=== PATIENT | female | born 1980 | race Two or more races ===

== ENCOUNTER 2018-04-27 20:56 | Emergency (ER) | payer MEDICAID ==
[~2018-04-27] VITALS: Ht 165.1 cm; Wt 82.8 kg
[~2018-04-27 20:56] MED LIST: BIOT25008 PO; GLYB2.5T4 PO; INSU100V10 SQ; LANTUS SQ; METF500T PO; OMEG-8 PO
[2018-04-27 20:59] VITALS: BP 171/95
[2018-04-27] MEDS ORDERED: ketorolac trometh inj. 60 MG/2 ML VIAL IM ONE (21:20)
[2018-04-27] MEDS ORDERED: orphenadrine citrate 60mg/2ml inj. IM ONE (21:20)
[2018-04-27] MEDS ORDERED: CYCL-1 PO (21:22)
[2018-04-27] MEDS ORDERED: IBUP-1984 PO (21:22)
== END 2018-04-27 21:37 | disposition home or self-care (01) ==
LOC: ER 20:57
DX: S39.012A Strain of muscle, fascia and tendon of lower back, initial encounter (principal); G89.29 Other chronic pain; E11.9 Type 2 diabetes mellitus without complications; Z79.2 Long term (current) use of antibiotics; Z79.84 Long term (current) use of oral hypoglycemic drugs; Z79.899 Other long term (current) drug therapy; X50.1XXA Overexertion from prolonged static or awkward postures, initial encounter; Y93.89 Activity, other specified; Y92.89 Other specified places as the place of occurrence of the external cause; Y99.8 Other external cause status
CPT/HCPCS: 96372; 99284; J1885; J2360

== ENCOUNTER 2019-09-20 18:37 | Inpatient (IN) | payer MEDICAID, OTHER ==
[~2019-09-20] VITALS: Ht 165.1 cm; Wt 100.0 kg
[~2019-09-20 18:37] MED LIST changes: +CYCL-1 PO
--- NOTE | 2019-09-20 18:57 | NUR ---
On arrival patient requests no repeat EKG to registration which accounts for the delay in EKG time.
[2019-09-20 19:18] LABS: BASOPHILS # (AUTO) 0.1 X10'3 (0-0.2); BASOPHILS % (AUTO) 0.9 % (0-1); EOSINOPHILS # (AUTO) 0.2 X10'3 (0-0.9); EOSINOPHILS % (AUTO) 3.7 % (0-6); HEMATOCRIT 41.6 % (35.0-45.0); HEMOGLOBIN 13.8 g/dl (12.0-16.0); LYMPHOCYTES % (AUTO) 31.6 % (21-51); MEAN CORPUSCULAR HEMOGLOBIN 26.4 PG (27.0-31.0); MEAN CORPUSCULAR HGB CONC 33.3 g/dL (33.0-36.5); MEAN CORPUSCULAR VOLUME 79.3 FL (78-98); MEAN PLATELET VOLUME 9.5 FL (7.4-10.4); MONOCYTES # (AUTO) 0.4 X10'3 (0-0.9); MONOCYTES % (AUTO) 7.1 % (2-12); NEUTROPHILS # (AUTO) 3.5 X10'3 (1.8-7.7); NEUTROPHILS % (AUTO) 56.7 % (42-75); PLATELET COUNT 256 X10'3 (140-440); RED BLOOD COUNT 5.24 X10'6 (4.20-5.60); RED CELL DISTRIBUTION WIDTH 13.6 % (11.5-14.5); WHITE BLOOD COUNT 6.2 X10'3 (4.5-11.0)
[2019-09-20 19:35] LABS: ALANINE AMINOTRANSFERASE 58 U/L (12-78); ALBUMIN 3.7 G/DL (3.4-5.0); ALBUMIN/GLOBULIN RATIO 1.1 (1.1-1.5); ALKALINE PHOSPHATASE 56 IU/L (46-116); ANION GAP 7 (8-16); ASPARTATE AMINO TRANSFERASE 29 U/L (10-37); BILIRUBIN,TOTAL 0.2 MG/DL (0.1-1.0); BLOOD UREA NITROGEN 14 MG/DL (7-18); BUN/CREATININE RATIO 19.2 (6.6-38.0); CHLORIDE 104 MMOL/L (99-107); CREATININE 0.73 MG/DL (0.40-0.90); GLUCOSE 272 MG/DL (70-104); POTASSIUM 4.2 MMOL/L (3.5-5.1); SODIUM 140 MMOL/L (135-145); TOTAL CARBON DIOXIDE 28.6 MMOL/L (24-32); TOTAL PROTEIN 7.1 G/DL (6.4-8.2); eGFR 89 ML/MIN
[2019-09-20] MEDS ORDERED: nitroGLYCERIN 0.4mg/hour patch TD ONE (20:25)
[2019-09-20] MEDS ORDERED: aspirin 81mg tab.chew PO ONE (20:25)
[2019-09-20] MEDS ORDERED: normal saline 1000ml 1,000 ML IV SCH (21:41)
[2019-09-20] MEDS ORDERED: magnesium hydroxide 30ml (MOM) UD suspension PO PRN (21:45)
[2019-09-20] MEDS ORDERED: dextrose ORAL solution 15 GM/59 ML bottle PO PRN ×2 (21:45)
[2019-09-20] MEDS ORDERED: MESSAGE TO PHARMACY PO ONE (21:45)
[2019-09-20] MEDS ORDERED: mag hydrox/Alum hydrox/simeth 30ml oral suspension PO PRN (21:45)
[2019-09-20] MEDS ORDERED: insulin Lispro (HumaLOG) vial - multi-dose SQ SCH (21:45)
[2019-09-20] MEDS ORDERED: glucagon, human recombinant 1mg kit SUBCUT PRN (21:45)
[2019-09-20] MEDS ORDERED: ondansetron/PF 4mg/2ml inj IV PRN (21:45)
[2019-09-20] MEDS ORDERED: dextrose 50%-water 50ml dispensing syringe IV PRN ×2 (21:45)
[2019-09-20] MEDS ORDERED: acetaminophen 325mg tablet PO PRN (21:45)
[2019-09-20] MEDS ORDERED: metoprolol tartrate 1mg/ml inj IV PRN (21:50)
[2019-09-20] MEDS ORDERED: regadenoson 0.4mg/5ml syringe IV ONE (21:50)
[2019-09-20] MEDS ORDERED: nitroGLYCERIN 0.4mg SUBLingual tab SL PRN (21:50)
[2019-09-20] MEDS ORDERED: aminophylline 250mg/10ml inj. IV PRN (21:50)
[2019-09-20] MEDS ORDERED: LANTUS SQ (22:01)
[2019-09-20] MEDS ORDERED: METF500T PO (22:01)
[2019-09-20 22:05] LABS: HEMOGLOBIN A1C 9.9 % (4.5-6.2)
--- NOTE | 2019-09-20 22:19 | NUR ---
Called to give report, no RN available to take report.
--- NOTE | 2019-09-20 22:31 | NUR ---
braulio Bauman RN took report from IRENA Lyons in ER. Patient transferring to PCU.
[2019-09-20 23:00] VITALS: BP 129/76
--- NOTE | 2019-09-20 23:15 | NUR ---
Pt arrived on unit @ approx 2300. [place] able to transfer [place], VS are stable, no distress noted. 2-RN skin assessment, nasal MRSA test, & Dart completed. Belongings are with the pt and family at bedside.
[2019-09-20] MEDS: losartan 50mg tablet PO SCH (23:23)
[2019-09-21] VITALS (15 sets, daily range): BP systolic 95–155; BP diastolic 44–90
--- NOTE | 2019-09-21 05:11 | NUR ---
I agree with all charting completed by IRENA Salas.
--- NOTE | 2019-09-21 06:03 | NUR ---
Pt is stable on shift change. Problems reprioritized. Patient report given, questions answered & plan of care reviewed with Frida.
--- NOTE | 2019-09-21 06:03 | NUR ---
Problems reprioritized. Patient report given, questions answered & plan of care reviewed with IRENA Moreno.
--- NOTE | 2019-09-21 06:30 | NUR ---
Patient in room PCU 3013. I have received report from Paradise OSBORN and had the opportunity to ask questions and assume patient care. Patient asleep in bed and resting comfortably. In no acute distress.
--- NOTE | 2019-09-21 06:34 | NUR ---
Patient in room PCU 3013. I have received report from Paradise OSBORN and Ivon OSBORN and had the opportunity to ask questions and assume patient care.
[2019-09-21 07:34] LABS: BASOPHILS # (AUTO) 0.1 X10'3 (0-0.2); BASOPHILS % (AUTO) 1.1 % (0-1); EOSINOPHILS # (AUTO) 0.2 X10'3 (0-0.9); EOSINOPHILS % (AUTO) 3.7 % (0-6); HEMATOCRIT 38.1 % (35.0-45.0); HEMOGLOBIN 12.7 g/dl (12.0-16.0); LYMPHOCYTES # (AUTO) 2.7 X10'3 (1.1-4.8); LYMPHOCYTES % (AUTO) 44.6 % (21-51); MEAN CORPUSCULAR HEMOGLOBIN 26.4 PG (27.0-31.0); MEAN CORPUSCULAR HGB CONC 33.3 g/dL (33.0-36.5); MEAN CORPUSCULAR VOLUME 79.2 FL (78-98); MEAN PLATELET VOLUME 9.6 FL (7.4-10.4); MONOCYTES # (AUTO) 0.4 X10'3 (0-0.9); MONOCYTES % (AUTO) 7.1 % (2-12); NEUTROPHILS # (AUTO) 2.6 X10'3 (1.8-7.7); NEUTROPHILS % (AUTO) 43.5 % (42-75); PLATELET COUNT 253 X10'3 (140-440); RED BLOOD COUNT 4.81 X10'6 (4.20-5.60); RED CELL DISTRIBUTION WIDTH 13.4 % (11.5-14.5)
[2019-09-21 07:42] LABS: ALANINE AMINOTRANSFERASE 50 U/L (12-78); ALBUMIN 3.2 G/DL (3.4-5.0); ALBUMIN/GLOBULIN RATIO 1.1 (1.1-1.5); ALKALINE PHOSPHATASE 42 IU/L (46-116); ANION GAP 5 (8-16); ASPARTATE AMINO TRANSFERASE 24 U/L (10-37); BILIRUBIN,TOTAL 0.2 MG/DL (0.1-1.0); BLOOD UREA NITROGEN 14 MG/DL (7-18); BUN/CREATININE RATIO 23.7 (6.6-38.0); CALCIUM 8.5 MG/DL (8.5-10.1); CHLORIDE 108 MMOL/L (99-107); CREATININE 0.59 MG/DL (0.40-0.90); GLUCOSE 79 MG/DL (70-104); POTASSIUM 3.9 MMOL/L (3.5-5.1); SODIUM 144 MMOL/L (135-145); TOTAL CARBON DIOXIDE 30.7 MMOL/L (24-32); eGFR > 90 ML/MIN
[2019-09-21 07:47] LABS: CHOL/HDL RATIO 5.6 (0.00-4.99); CHOLESTEROL 192 MG/DL (0-200); HDL CHOLESTEROL 34 MG/DL (35-60); LDL CHOLESTEROL 135 MG/DL (50-100); TRIGLYCERIDES 123 MG/DL (20-135)
[2019-09-21] MEDS ORDERED: aspirin 81mg tablet.DR PO SCH (08:00)
[2019-09-21] MEDS: losartan 50mg tablet PO SCH (08:00)
[2019-09-21] MEDS ORDERED: heparin, porcine 5000 units/ml vial SQ SCH (08:00)
--- NOTE | 2019-09-21 11:51 | NUR ---
Linda Navarro. [id number]. Patient has a headache 02/10. No pain medication available. Please advise? SLICK. Guido OSBORN [id number]
[2019-09-21] MEDS ORDERED: acetaminophen 325mg tablet PO PRN (12:20)
--- NOTE | 2019-09-21 12:20 | NUR ---
Tylenol 650mg Q6H PRN per Dr. Raya
--- NOTE | 2019-09-21 13:19 | NUR ---
Dr. Raya notified Linda Ledbetter. [id number]. FYI patient ALBERTO resulted. Would you like the patient to remain NPO? SLICK. Guido OSBORN [id number]
--- NOTE | 2019-09-21 14:52 | NUR ---
DM Consult: Pt A1C 9.9 admit w/ NSTEMI and hx T2DM. NPO for stress test this AM. Pt seen by RD for written/verbal DM ed w/ RD contact information provided. Pt reports typically eats one small meal a day since works nights; previously had tried keto diet and now simply has one salad and a meat each day. Pt reports unable to control GLU even after cutting out grains and starches from diet. RD educated pt on proper meal frequency, carb variety, importance of protein, and importance of checking GLU regularly. Pt reports only checks GLU once/day, takes metformin and Lantus at home as prescribed, and has no trouble receiving refills. RD encouraged pt to attend CDE course for additional education as well. Addendum: 09/21/19 at [address] Amended: Links added.
[2019-09-21] MEDS ORDERED: ASPI-1071 PO (14:59)
[2019-09-21] MEDS ORDERED: ATOR20TA PO (14:59)
[2019-09-21] MEDS ORDERED: NITR0.4T51 SL (14:59)
[2019-09-21] MEDS ORDERED: LOSA25TA96 PO (15:03)
--- NOTE | 2019-09-21 15:39 | NUR ---
Dr. Raya notified Linda Walker, [id number]. Patient would like to speak to you in person regarding melquiades results and what caused the chest pain. She is concerned due to being so young. TY. Guido OSBORN [id number]
--- NOTE | 2019-09-21 16:51 | NUR ---
Dr. Raya notified Linda prescott. [id number]. Patient is requesting a note to be out of work? I can bring it to you to sign if you would like? Guido OSBORN [id number]
--- NOTE | 2019-09-21 17:39 | NUR ---
Patient is stable for discharge per MD orders, all discharge instructions reviewed with patient and all questions answered, new prescriptions called into pharmacy, PIV and Tele DC, belongings sent with patient, walked to lobby, picked up by .
--- NOTE | 2019-09-21 18:25 | NUR ---
[place] documentation: I have reviewed and agree with all interventions, assessments performed and documented IRENA Lora. [place] Medication Administration: For this medication-pass time frame, all medication were reviewed, dispensed, administered and documented per hospital policy by IRENA Lora.
[2019-09-21] MEDS ORDERED: insulin glargine (Lantus) pen - multi-dose SQ SCH ×2 (21:00)
== END 2019-09-21 17:35 | disposition home or self-care (01) | DRG 282 ==
LOC: ER 18:38 → ED HOLD 21:41 → PCU 3S 23:10
PROVIDERS: ADMIT Internal Medicine; ATTEND Hospitalist
PROC: 4A02XM4 Measurement of Cardiac Total Activity, External Approach (ICD-10-PCS; principal; 2019-09-21)
PROC: 3E033HZ Introduction of Radioactive Substance into Peripheral Vein, Percutaneous Approach (ICD-10-PCS; 2019-09-21)
DX: I21.4 Non-ST elevation (NSTEMI) myocardial infarction (principal); G89.29 Other chronic pain; M54.9 Dorsalgia, unspecified; Z79.899 Other long term (current) drug therapy; Z82.3 Family history of stroke; Z82.49 Family history of ischemic heart disease and other diseases of the circulatory system; Z83.3 Family history of diabetes mellitus; Z87.891 Personal history of nicotine dependence
CPT/HCPCS: 36415; 78452; 80053; 80061; 82948; 83036; 83880; 84484; 85025; 87081; 93005; 93017; 93306; 99291; A9500; G0378; J1644; J1815; J2785; J7030

== ENCOUNTER 2019-10-26 10:57 | Day surgery (SDC) | payer OTHER ==
[2019-10-25 13:29] LABS: BASOPHILS # (AUTO) 0.1 X10'3 (0-0.2); BASOPHILS % (AUTO) 1.1 % (0-1); EOSINOPHILS # (AUTO) 0.1 X10'3 (0-0.9); EOSINOPHILS % (AUTO) 2.6 % (0-6); HEMATOCRIT 38.9 % (35.0-45.0); LYMPHOCYTES # (AUTO) 1.6 X10'3 (1.1-4.8); LYMPHOCYTES % (AUTO) 29.5 % (21-51); MEAN CORPUSCULAR HEMOGLOBIN 26.6 PG (27.0-31.0); MEAN CORPUSCULAR HGB CONC 33.5 g/dL (33.0-36.5); MEAN CORPUSCULAR VOLUME 79.4 FL (78-98); MONOCYTES # (AUTO) 0.4 X10'3 (0-0.9); NEUTROPHILS # (AUTO) 3.2 X10'3 (1.8-7.7); NEUTROPHILS % (AUTO) 58.8 % (42-75); PLATELET COUNT 266 X10'3 (140-440); RED CELL DISTRIBUTION WIDTH 13.6 % (11.5-14.5); WHITE BLOOD COUNT 5.5 X10'3 (4.5-11.0)
[2019-10-25 13:39] LABS: ALBUMIN 3.6 G/DL (3.4-5.0); ANION GAP 7 (8-16); BLOOD UREA NITROGEN 13 MG/DL (7-18); BUN/CREATININE RATIO 21.7 (6.6-38.0); CALCIUM 8.7 MG/DL (8.5-10.1); CHLORIDE 106 MMOL/L (99-107); GLUCOSE 141 MG/DL (70-104); POTASSIUM 4.3 MMOL/L (3.5-5.1); SODIUM 141 MMOL/L (135-145); TOTAL CARBON DIOXIDE 27.6 MMOL/L (24-32); eGFR > 90 ML/MIN
[2019-10-25 13:41] LABS: PARTIAL THROMBOPLASTIN TIME 28 SECONDS (22-32)
[2019-10-26] VITALS (10 sets, daily range): BP systolic 120–175; BP diastolic 67–93
[~2019-10-26] VITALS: Ht 165.1 cm; Wt 96.4 kg
[~2019-10-26 10:57] MED LIST changes: +ASPI-1071 PO; +ATOR20TA PO; -BIOT25008 PO; -CYCL-1 PO; -GLYB2.5T4 PO; -INSU100V10 SQ; -OMEG-8 PO
[2019-10-26] MEDS ORDERED: LORazepam 0.5 MG tablet PO PRN (11:25)
[2019-10-26] MEDS ORDERED: normal saline 1,000 ML IV SCH (11:25)
[2019-10-26] MEDS ORDERED: diphenhydrAMINE 25mg capsule PO PRN (11:25)
[2019-10-26] MEDS ORDERED: ASPI-611 PO (11:44)
[2019-10-26] MEDS ORDERED: METF-795 PO (11:44)
[2019-10-26] MEDS ORDERED: LOSA50TA64 PO (11:44)
[2019-10-26] MEDS ORDERED: ISOS30TA6 PO (11:44)
[2019-10-26] MEDS ORDERED: METO25TA6 PO (11:44)
[2019-10-26] MEDS ORDERED: ATOR20TA PO (11:44)
[2019-10-26] MEDS ORDERED: INSU100I31 SQ (11:44)
[2019-10-26] MEDS ORDERED: fentaNYL/PF 50MCG/1 ML 2ML syringe ONE (14:51)
[2019-10-26] MEDS ORDERED: LIDOcaine 1% (10mg/ml)w/preservative injection 20ml MDV ONE (14:52)
[2019-10-26] MEDS ORDERED: midazolam 2 mg/2 ml injection ONE (14:52)
[2019-10-26] MEDS ORDERED: iohexol 350MG/ML 100ml bottle IV ONE ×2 (14:52→16:33)
[2019-10-26] MEDS ORDERED: heparin 1,000unit/ml 10ml vial 10 ML ONE (15:58)
[2019-10-26] MEDS ORDERED: nitroGLYCERIN-Tridil 50MG/D5W 250 ML IV ONE (15:59)
[2019-10-26] MEDS ORDERED: verapamil 2.5 mg/ml inj IV ONE (16:10)
[2019-10-26] MEDS ORDERED: ticagrelor 90mg tablet ONE (16:28)
== END 2019-10-26 20:20 | disposition home or self-care (01) ==
LOC: SSTAY O 10:57
PROVIDERS: ATTEND Internal Medicine Interventional Cardiology
DX: R94.30 Abnormal result of cardiovascular function study, unspecified (principal); I25.10 Atherosclerotic heart disease of native coronary artery without angina pectoris; I10 Essential (primary) hypertension; I25.2 Old myocardial infarction; E66.9 Obesity, unspecified; E11.59 Type 2 diabetes mellitus with other circulatory complications; F17.211 Nicotine dependence, cigarettes, in remission; E78.5 Hyperlipidemia, unspecified; Z79.899 Other long term (current) drug therapy; Z98.890 Other specified postprocedural states; Z79.82 Long term (current) use of aspirin
CPT/HCPCS: 36415; 80048; 82948; 85025; 85610; 85730; 93005; 93458; 99152; 99153; C1769; C1874; C1894; C9600; J1644; J2001; J2250; J3010; J7030; Q0163; Q9967; A4620; A5120; A6258; C1751; J3490

== ENCOUNTER 2020-01-20 20:38 | Emergency (ER) | payer OTHER ==
[~2020-01-20] VITALS: Ht 165.1 cm; Wt 90.9 kg
[~2020-01-20 20:38] MED LIST changes: -ASPI-1071 PO; +ASPI-611 PO; +INSU100I31 SQ; +ISOS30TA6 PO; +LOSA50TA64 PO; +METF-795 PO; +METO25TA6 PO
[2020-01-20 20:55] LABS: BASOPHILS # (AUTO) 0.1 X10'3 (0-0.2); EOSINOPHILS # (AUTO) 0.2 X10'3 (0-0.9); EOSINOPHILS % (AUTO) 3.8 % (0-6); HEMATOCRIT 38.3 % (35.0-45.0); HEMOGLOBIN 12.5 g/dl (12.0-16.0); LYMPHOCYTES # (AUTO) 1.9 X10'3 (1.1-4.8); LYMPHOCYTES % (AUTO) 35.8 % (21-51); MEAN CORPUSCULAR HEMOGLOBIN 26.3 PG (27.0-31.0); MEAN CORPUSCULAR HGB CONC 32.6 g/dL (33.0-36.5); MEAN CORPUSCULAR VOLUME 80.8 FL (78-98); MEAN PLATELET VOLUME 9.1 FL (7.4-10.4); MONOCYTES # (AUTO) 0.4 X10'3 (0-0.9); MONOCYTES % (AUTO) 6.8 % (2-12); NEUTROPHILS # (AUTO) 2.8 X10'3 (1.8-7.7); NEUTROPHILS % (AUTO) 52.6 % (42-75); PLATELET COUNT 228 X10'3 (140-440); RED BLOOD COUNT 4.74 X10'6 (4.20-5.60); RED CELL DISTRIBUTION WIDTH 13.2 % (11.5-14.5); WHITE BLOOD COUNT 5.4 X10'3 (4.5-11.0)
[2020-01-20 21:10] LABS: ALANINE AMINOTRANSFERASE 27 U/L (12-78); ALBUMIN 3.3 G/DL (3.4-5.0); ALBUMIN/GLOBULIN RATIO 1.1 (1.1-1.5); ALKALINE PHOSPHATASE 43 IU/L (46-116); ANION GAP 11 (8-16); ASPARTATE AMINO TRANSFERASE 12 U/L (10-37); BILIRUBIN,TOTAL 0.2 MG/DL (0.1-1.0); BLOOD UREA NITROGEN 17 MG/DL (7-18); BUN/CREATININE RATIO 22.4 (6.6-38.0); CALCIUM 8.3 MG/DL (8.5-10.1); CHLORIDE 108 MMOL/L (99-107); CREATININE 0.76 MG/DL (0.40-0.90); GLUCOSE 81 MG/DL (70-104); POTASSIUM 3.5 MMOL/L (3.5-5.1); SODIUM 146 MMOL/L (135-145); TOTAL PROTEIN 6.3 G/DL (6.4-8.2); eGFR 85 ML/MIN
[2020-01-20] MEDS ORDERED: normal saline 1000ML IV soln IVB ONE (21:20)
[2020-01-20] MEDS ORDERED: ondansetron/PF 4mg/2ml inj IV ONE (21:40)
[2020-01-20] MEDS ORDERED: proCHLORperazine 10 MG/2 ml inj IV ONE (21:55)
[2020-01-21 00:50] VITALS: BP 125/47
== END 2020-01-21 00:53 | disposition home or self-care (01) ==
LOC: ER 20:38
DX: I25.10 Atherosclerotic heart disease of native coronary artery without angina pectoris (principal); R06.02 Shortness of breath; R07.9 Chest pain, unspecified; R42 Dizziness and giddiness; R11.0 Nausea; G89.29 Other chronic pain; Z79.82 Long term (current) use of aspirin; Z79.4 Long term (current) use of insulin; Z79.899 Other long term (current) drug therapy
CPT/HCPCS: 36415; 71045; 80053; 84484; 85025; 93005; 96374; 96375; 99285; J0780; J2405; J7030

== ENCOUNTER 2021-09-27 15:01 | Outpatient (CLI) | payer BC ==
[~2021-09-27 15:01] MED LIST changes: -ISOS30TA6 PO; +ISOS30TA84 PO; +LOP25T PO; -METF-795 PO; +METF-880 PO; -METO25TA6 PO
[2021-09-27 15:48] LABS: BASOPHILS % (AUTO) 0.5 % (0-1); EOSINOPHILS # (AUTO) 0.1 X10'3 (0-0.9); EOSINOPHILS % (AUTO) 2.9 % (0-6); HEMATOCRIT 40.2 % (35.0-45.0); HEMOGLOBIN 13.2 g/dl (12.0-16.0); LYMPHOCYTES # (AUTO) 1.5 X10'3 (1.1-4.8); LYMPHOCYTES % (AUTO) 31.7 % (21-51); MEAN CORPUSCULAR HEMOGLOBIN 26.2 PG (27.0-31.0); MEAN CORPUSCULAR HGB CONC 32.8 g/dL (33.0-36.5); MONOCYTES # (AUTO) 0.4 X10'3 (0-0.9); MONOCYTES % (AUTO) 9.2 % (2-12); NEUTROPHILS # (AUTO) 2.6 X10'3 (1.8-7.7); NEUTROPHILS % (AUTO) 55.7 % (42-75); PLATELET COUNT 212 X10'3 (140-440); RED BLOOD COUNT 5.03 X10'6 (4.20-5.60); RED CELL DISTRIBUTION WIDTH 13.5 % (11.5-14.5); WHITE BLOOD COUNT 4.7 X10'3 (4.5-11.0)
[2021-09-27 16:12] LABS: HEMOGLOBIN A1C 9.4 % (4.5-6.2)
[2021-09-27 16:14] LABS: ALANINE AMINOTRANSFERASE 32 U/L (12-78); ALBUMIN 3.9 G/DL (3.4-5.0); ALBUMIN/GLOBULIN RATIO 1.4 (1.1-1.5); ALKALINE PHOSPHATASE 41 IU/L (46-116); ANION GAP 10 (8-16); ASPARTATE AMINO TRANSFERASE 13 U/L (10-37); BILIRUBIN,TOTAL 0.2 MG/DL (0.1-1.0); BLOOD UREA NITROGEN 19 MG/DL (7-18); BUN/CREATININE RATIO 35.8 (6.6-38.0); CALCIUM 8.2 MG/DL (8.5-10.1); CHLORIDE 105 MMOL/L (99-107); CHOLESTEROL 158 MG/DL (0-200); CREATININE 0.53 MG/DL (0.40-0.90); GLUCOSE 150 MG/DL (70-104); HDL CHOLESTEROL 40 MG/DL (35-60); LDL CHOLESTEROL 94 MG/DL (50-100); POTASSIUM 4.5 MMOL/L (3.5-5.1); SODIUM 142 MMOL/L (135-145); TOTAL CARBON DIOXIDE 26.9 MMOL/L (24-32); TOTAL PROTEIN 6.7 G/DL (6.4-8.2); TRIGLYCERIDES 95 MG/DL (20-135); eGFR > 90 ML/MIN
[2021-09-29 10:21] LABS: C-PEPTIDE, SERUM 2.5 ng/mL (1.1-4.4)
[2021-09-29 16:57] LABS: MICROALB/CRT, RATIO 43 mg/g creat (0-29)
[2021-10-01 14:26] LABS: GAD-65 AUTOANTIBODY <5.0 U/mL (0.0-5.0)
== END 2021-09-27 23:59 | disposition home or self-care (01) ==
LOC: LAB 15:01
PROVIDERS: ATTEND Nurse Practitioner Occupational Health
DX: E11.9 Type 2 diabetes mellitus without complications (principal); E55.9 Vitamin D deficiency, unspecified; R53.83 Other fatigue; Z00.00 Encounter for general adult medical examination without abnormal findings
CPT/HCPCS: 36415; 80053; 80061; 82043; 82306; 82570; 83036; 84439; 84443; 84681; 85025

== ENCOUNTER 2022-04-08 19:25 | Emergency (ER) | payer BC ==
[~2022-04-08] VITALS: Ht 165.1 cm; Wt 87.8 kg
[2022-04-08 19:29] VITALS: BP 145/88
[2022-04-08] MEDS ORDERED: dexamethasone sod phosphate 10mg/ml inj IM STA (21:00)
[2022-04-08] MEDS ORDERED: albuterol 2.5 MG/3 ML nebule NEB ONE ×2 (21:00→21:40)
== END 2022-04-08 22:27 | disposition home or self-care (01) ==
LOC: ER 19:26
DX: J20.9 Acute bronchitis, unspecified (principal); J45.909 Unspecified asthma, uncomplicated; R05.9 Cough, unspecified; R09.89 Other specified symptoms and signs involving the circulatory and respiratory systems; G89.29 Other chronic pain; Z79.82 Long term (current) use of aspirin; Z79.4 Long term (current) use of insulin; Z79.899 Other long term (current) drug therapy
CPT/HCPCS: 71045; 94640; 96372; 99283; J1100; 94760

== ENCOUNTER 2022-05-03 12:33 | Outpatient (CLI) | payer BC ==
[2022-05-03 13:13] LABS: ALANINE AMINOTRANSFERASE 27 U/L (12-78); ALBUMIN 3.7 G/DL (3.4-5.0); ALBUMIN/GLOBULIN RATIO 1.2 (1.1-1.5); ALKALINE PHOSPHATASE 44 IU/L (46-116); ANION GAP 7 (8-16); ASPARTATE AMINO TRANSFERASE 9 U/L (10-37); BILIRUBIN,TOTAL 0.2 MG/DL (0.1-1.0); BLOOD UREA NITROGEN 15 MG/DL (7-18); BUN/CREATININE RATIO 26.3 (6.6-38.0); CALCIUM 8.8 MG/DL (8.5-10.1); CHLORIDE 103 MMOL/L (99-107); CHOL/HDL RATIO 3.6 (0.00-4.99); CHOLESTEROL 141 MG/DL (0-200); CREATININE 0.57 MG/DL (0.40-0.90); GLUCOSE 205 MG/DL (70-104); HDL CHOLESTEROL 39 MG/DL (35-60); LDL CHOLESTEROL 83 MG/DL (50-100); POTASSIUM 4.1 MMOL/L (3.5-5.1); SODIUM 139 MMOL/L (135-145); TOTAL CARBON DIOXIDE 29.4 MMOL/L (24-32); TOTAL PROTEIN 6.7 G/DL (6.4-8.2); TRIGLYCERIDES 101 MG/DL (20-135); eGFR > 90 ML/MIN
== END 2022-05-03 23:59 | disposition home or self-care (01) ==
LOC: LAB 12:33
PROVIDERS: ATTEND Internal Medicine Interventional Cardiology
DX: E78.5 Hyperlipidemia, unspecified (principal)
CPT/HCPCS: 36415; 80053; 80061

== ENCOUNTER 2022-07-19 08:43 | Outpatient (CLI) | payer BC | END 2022-07-19 23:59 | disposition home or self-care (01) | LOC: RAD 08:43 | PROVIDERS: ATTEND Nurse Practitioner Family | DX: N85.8 Other specified noninflammatory disorders of uterus (principal); N83.292 Other ovarian cyst, left side; N92.6 Irregular menstruation, unspecified | CPT/HCPCS: 76830; 76856; 93976 ==

== ENCOUNTER 2022-07-19 08:54 | Outpatient (CLI) | payer BC ==
[2022-07-19 09:32] LABS: HEMOGLOBIN A1C 9.5 % (4.5-6.2)
[2022-07-19 09:48] LABS: ALANINE AMINOTRANSFERASE 22 U/L (12-78); ALBUMIN 3.9 G/DL (3.4-5.0); ALBUMIN/GLOBULIN RATIO 1.3 (1.1-1.5); ALKALINE PHOSPHATASE 47 IU/L (46-116); ASPARTATE AMINO TRANSFERASE 10 U/L (10-37); BILIRUBIN,TOTAL 0.3 MG/DL (0.1-1.0); BLOOD UREA NITROGEN 17 MG/DL (7-18); BUN/CREATININE RATIO 26.6 (6.6-38.0); CALCIUM 9.2 MG/DL (8.5-10.1); CHOL/HDL RATIO 3.5 (0.00-4.99); CHOLESTEROL 130 MG/DL (0-200); CREATININE 0.64 MG/DL (0.40-0.90); GLUCOSE 289 MG/DL (70-104); HDL CHOLESTEROL 37 MG/DL (35-60); LDL CHOLESTEROL 72 MG/DL (50-100); TOTAL CARBON DIOXIDE 29.1 MMOL/L (24-32); TOTAL PROTEIN 6.8 G/DL (6.4-8.2); TRIGLYCERIDES 140 MG/DL (20-135); eGFR > 90 ML/MIN
[2022-07-19 09:58] LABS: ANION GAP 7 (8-16); CHLORIDE 100 MMOL/L (99-107); POTASSIUM 4.5 MMOL/L (3.5-5.1); SODIUM 136 MMOL/L (135-145)
== END 2022-07-19 23:59 | disposition home or self-care (01) ==
LOC: LAB 08:54
PROVIDERS: ATTEND Nurse Practitioner Family
DX: E11.59 Type 2 diabetes mellitus with other circulatory complications (principal); E78.5 Hyperlipidemia, unspecified; I10 Essential (primary) hypertension
CPT/HCPCS: 36415; 80053; 80061; 83036

== ENCOUNTER 2023-03-26 06:44 | Outpatient (CLI) | payer BC | END 2023-03-26 23:59 | disposition home or self-care (01) | LOC: LAB 06:44 | PROVIDERS: ATTEND Family Medicine | DX: E11.9 Type 2 diabetes mellitus without complications (principal) | CPT/HCPCS: 36415; 83036 ==

== ENCOUNTER → 2023-05-23 | Outpatient (CLI) | payer BC ==
[2023-05-23 15:00] LABS: ALANINE AMINOTRANSFERASE 24 U/L (12-78); ALBUMIN 3.8 G/DL (3.4-5.0); ALBUMIN/GLOBULIN RATIO 1.1 (1.1-1.5); ALKALINE PHOSPHATASE 43 IU/L (46-116); ANION GAP 8 (8-16); ASPARTATE AMINO TRANSFERASE 11 U/L (10-37); BILIRUBIN,TOTAL 0.3 MG/DL (0.1-1.0); BLOOD UREA NITROGEN 18 MG/DL (7-18); BUN/CREATININE RATIO 39.1 (10.0-20.0); CHLORIDE 104 MMOL/L (99-107); CHOL/HDL RATIO 3.7 (0.00-4.99); CHOLESTEROL 129 MG/DL (0-200); CREATININE 0.46 MG/DL (0.40-0.90); GLUCOSE 161 MG/DL (70-104); HDL CHOLESTEROL 35 MG/DL (35-60); LDL CHOLESTEROL 69 MG/DL (50-100); POTASSIUM 4.4 MMOL/L (3.5-5.1); SODIUM 138 MMOL/L (135-145); TOTAL CARBON DIOXIDE 25.9 MMOL/L (24-32); TOTAL PROTEIN 7.2 G/DL (6.4-8.2); TRIGLYCERIDES 161 MG/DL (20-135); eGFR > 90 ML/MIN
== END | disposition home or self-care (01) ==
LOC: LAB 13:56
PROVIDERS: ATTEND Family Medicine
DX: E78.00 Pure hypercholesterolemia, unspecified (principal); E11.9 Type 2 diabetes mellitus without complications; I10 Essential (primary) hypertension
CPT/HCPCS: 36415; 80053; 80061

== ENCOUNTER 2023-08-26 20:05 | Emergency (ER) | payer BC ==
[~2023-08-26] VITALS: Ht 162.6 cm; Wt 85.0 kg
[2023-08-26 20:09] VITALS: BP 136/74; TEMP 97.8
[2023-08-26 21:48] LABS: BASOPHILS # (AUTO) 0.1 X10'3 (0-0.2); BASOPHILS % (AUTO) 0.8 % (0-1); EOSINOPHILS # (AUTO) 0.1 X10'3 (0-0.9); EOSINOPHILS % (AUTO) 1.9 % (0-6); HEMOGLOBIN 13.1 g/dl (12.0-16.0); LYMPHOCYTES # (AUTO) 1.7 X10'3 (1.1-4.8); LYMPHOCYTES % (AUTO) 27.3 % (21-51); MEAN CORPUSCULAR HEMOGLOBIN 25.5 PG (27.0-31.0); MEAN CORPUSCULAR VOLUME 79.6 FL (78-98); MONOCYTES # (AUTO) 0.5 X10'3 (0-0.9); MONOCYTES % (AUTO) 7.7 % (2-12); NEUTROPHILS # (AUTO) 3.9 X10'3 (1.8-7.7); NEUTROPHILS % (AUTO) 62.3 % (42-75); PLATELET COUNT 247 X10'3 (140-440); RED BLOOD COUNT 5.15 X10'6 (4.20-5.60); RED CELL DISTRIBUTION WIDTH 14.5 % (11.5-14.5); WHITE BLOOD COUNT 6.3 X10'3 (4.5-11.0)
[2023-08-26] MEDS ORDERED: ipratropium/albuterol 3ml nebule NEB ONE (21:50)
[2023-08-26 21:52] LABS: ALANINE AMINOTRANSFERASE 31 U/L (12-78); ALBUMIN 3.9 G/DL (3.4-5.0); ALBUMIN/GLOBULIN RATIO 1.1 (1.1-1.5); ALKALINE PHOSPHATASE 40 IU/L (46-116); ANION GAP 10 (8-16); ASPARTATE AMINO TRANSFERASE 15 U/L (10-37); BILIRUBIN,TOTAL 0.5 MG/DL (0.1-1.0); BLOOD UREA NITROGEN 23 MG/DL (7-18); BUN/CREATININE RATIO 40.4 (10.0-20.0); CALCIUM 9.3 MG/DL (8.5-10.1); CHLORIDE 102 MMOL/L (99-107); CREATININE 0.57 MG/DL (0.40-0.90); GLUCOSE 152 MG/DL (70-104); POTASSIUM 4.5 MMOL/L (3.5-5.1); SODIUM 138 MMOL/L (135-145); TOTAL CARBON DIOXIDE 25.9 MMOL/L (24-32); TOTAL PROTEIN 7.4 G/DL (6.4-8.2); eCRCL 110 ML/MIN; eGFR > 90 ML/MIN
[2023-08-26 21:59] LABS: PRO BRAIN NATRIURETIC PEPTIDE 75 PG/ML (0-125)
[2023-08-26 22:03] VITALS: PULSE 86; RESP 16; O2SAT 96
[2023-08-26 22:08] VITALS: PULSE 86; RESP 16; O2SAT 100
[2023-08-26 23:11] LABS: D-DIMER < 0.19 MG/L FEU (0-0.50)
[2023-08-26] MEDS ORDERED: ALBU18HF2 INH (23:33)
[2023-08-26] MEDS ORDERED: PRED20TA PO (23:33)
== END 2023-08-26 23:54 | disposition home or self-care (01) ==
LOC: ER 20:06
DX: J45.901 Unspecified asthma with (acute) exacerbation (principal); J45.909 Unspecified asthma, uncomplicated; Z20.822 Contact with and (suspected) exposure to COVID-19
CPT/HCPCS: 36415; 71045; 80053; 83880; 84484; 85025; 85379; 87502; 87503; 87811; 94640; 94760; 99285

== ENCOUNTER 2023-10-08 08:43 | Outpatient (CLI) | payer BC ==
[~2023-10-08 08:43] MED LIST changes: +ALBU18HF2 INH
== END 2023-10-08 23:59 | disposition home or self-care (01) ==
LOC: VAS 08:43
PROVIDERS: ATTEND Nurse Practitioner Family
DX: I65.23 Occlusion and stenosis of bilateral carotid arteries (principal); I25.10 Atherosclerotic heart disease of native coronary artery without angina pectoris
CPT/HCPCS: 93880

== ENCOUNTER → 2023-10-15 | Outpatient (CLI) | payer BC ==
[2023-10-15 07:17] LABS: ALANINE AMINOTRANSFERASE 24 U/L (12-78); ALBUMIN 3.9 G/DL (3.4-5.0); ALBUMIN/GLOBULIN RATIO 1.3 (1.1-1.5); ALKALINE PHOSPHATASE 41 IU/L (46-116); ANION GAP 9 (8-16); ASPARTATE AMINO TRANSFERASE 15 U/L (10-37); BILIRUBIN,TOTAL 0.3 MG/DL (0.1-1.0); BLOOD UREA NITROGEN 24 MG/DL (7-18); BUN/CREATININE RATIO 35.3 (10.0-20.0); CALCIUM 8.3 MG/DL (8.5-10.1); CHLORIDE 104 MMOL/L (99-107); CHOL/HDL RATIO 3.3 (0.00-4.99); CHOLESTEROL 169 MG/DL (0-200); CREATININE 0.68 MG/DL (0.40-0.90); GLUCOSE 120 MG/DL (70-104); HDL CHOLESTEROL 51 MG/DL (35-60); LDL CHOLESTEROL 91 MG/DL (50-100); POTASSIUM 4.1 MMOL/L (3.5-5.1); SODIUM 138 MMOL/L (135-145); TOTAL CARBON DIOXIDE 24.8 MMOL/L (24-32); TOTAL PROTEIN 6.8 G/DL (6.4-8.2); TRIGLYCERIDES 75 MG/DL (20-135); eGFR > 90 ML/MIN
[2023-10-15 08:22] LABS: HEMOGLOBIN A1C 8.1 % (4.5-6.2)
== END | disposition home or self-care (01) ==
LOC: LAB 06:13
PROVIDERS: ATTEND Nurse Practitioner Family
DX: E11.59 Type 2 diabetes mellitus with other circulatory complications (principal); E78.5 Hyperlipidemia, unspecified
CPT/HCPCS: 36415; 80053; 80061; 83036

== ENCOUNTER 2023-11-02 04:35 | Emergency (ER) | payer BC ==
[~2023-11-02] VITALS: Ht 162.6 cm; Wt 86.4 kg
[2023-11-02 04:43] VITALS: BP 123/68; PULSE 86; RESP 16; TEMP 97.8; O2SAT 99
== END 2023-11-02 08:53 | disposition home or self-care (01) ==
LOC: ER 04:36
DX: R51.9 Headache, unspecified (principal); J02.9 Acute pharyngitis, unspecified; J45.909 Unspecified asthma, uncomplicated; G89.29 Other chronic pain; M54.9 Dorsalgia, unspecified; Z79.82 Long term (current) use of aspirin; Z79.84 Long term (current) use of oral hypoglycemic drugs; Z79.899 Other long term (current) drug therapy; Z79.4 Long term (current) use of insulin
CPT/HCPCS: 87502; 87503; 99283

== ENCOUNTER 2024-04-02 18:15 | Emergency (ER) | payer BC ==
[~2024-04-02] VITALS: Ht 162.6 cm; Wt 86.4 kg
--- NOTE | 2024-04-02 18:46 | NUR ---
PT REPORTS 6/10 PAIN BUT DOES NOT WANT TO TAKE PAIN MEDICATION AT THIS TIME.
[2024-04-02 20:01] VITALS: BP 151/94; PULSE 81; RESP 15; TEMP 97.2; O2SAT 98
== END 2024-04-02 20:03 | disposition home or self-care (01) ==
LOC: ER 18:16
DX: S53.402A Unspecified sprain of left elbow, initial encounter (principal); J45.909 Unspecified asthma, uncomplicated; G89.29 Other chronic pain; Z79.02 Long term (current) use of antithrombotics/antiplatelets; Z79.4 Long term (current) use of insulin; Z79.899 Other long term (current) drug therapy; Z87.891 Personal history of nicotine dependence; X50.0XXA Overexertion from strenuous movement or load, initial encounter; Y93.89 Activity, other specified; Y92.89 Other specified places as the place of occurrence of the external cause; Y99.8 Other external cause status
CPT/HCPCS: 73030; 73080; 99284

== ENCOUNTER 2024-04-08 14:56 | Outpatient (CLI) | payer BC ==
[2024-04-08 15:52] LABS: ALANINE AMINOTRANSFERASE 9 U/L (12-78); ALBUMIN 3.8 G/DL (3.4-5.0); ALBUMIN/GLOBULIN RATIO 1.1 (1.1-1.5); ALKALINE PHOSPHATASE 45 IU/L (46-116); ANION GAP 9 (8-16); ASPARTATE AMINO TRANSFERASE 9 U/L (10-37); BILIRUBIN,TOTAL 0.3 MG/DL (0.1-1.0); BLOOD UREA NITROGEN 17 MG/DL (7-18); BUN/CREATININE RATIO 28.8 (10.0-20.0); CALCIUM 8.6 MG/DL (8.5-10.1); CHLORIDE 106 MMOL/L (99-107); CHOL/HDL RATIO 3.8 (0.00-4.99); CHOLESTEROL 164 MG/DL (0-200); CREATININE 0.59 MG/DL (0.40-0.90); GLUCOSE 217 MG/DL (70-104); HDL CHOLESTEROL 43 MG/DL (35-60); LDL CHOLESTEROL 96 MG/DL (50-100); POTASSIUM 4.6 MMOL/L (3.5-5.1); SODIUM 139 MMOL/L (135-145); TOTAL CARBON DIOXIDE 24.2 MMOL/L (24-32); TOTAL PROTEIN 7.2 G/DL (6.4-8.2); TRIGLYCERIDES 158 MG/DL (20-135); eGFR > 90 ML/MIN
== END 2024-04-08 23:59 | disposition home or self-care (01) ==
LOC: RAD 14:56
PROVIDERS: ATTEND Nurse Practitioner Family
DX: E11.65 Type 2 diabetes mellitus with hyperglycemia (principal); E78.00 Pure hypercholesterolemia, unspecified
CPT/HCPCS: 36415; 80053; 80061; 83036; 84443

== ENCOUNTER 2024-04-16 16:09 | Outpatient (CLI) | payer BC | END 2024-04-16 23:59 | disposition home or self-care (01) | LOC: MRI 16:09 | PROVIDERS: ATTEND Nurse Practitioner Family | DX: M79.602 Pain in left arm (principal) | CPT/HCPCS: 73221 ==

== ENCOUNTER 2024-07-23 13:26 | Outpatient (CLI) | payer BC ==
[~2024-07-23 13:26] MED LIST changes: +METF-1142 PO; -METF-880 PO
== END 2024-07-23 23:59 | disposition home or self-care (01) ==
LOC: LAB 13:26
PROVIDERS: ATTEND Family Medicine
DX: E11.9 Type 2 diabetes mellitus without complications (principal)
CPT/HCPCS: 36415; 83036

== ENCOUNTER 2024-08-08 15:38 | Emergency (ER) | payer BC ==
[~2024-08-08] VITALS: Ht 162.6 cm; Wt 81.2 kg
[2024-08-08 18:36] LABS: BASOPHILS # (AUTO) 0.1 X10'3 (0-0.2); BASOPHILS % (AUTO) 0.9 % (0-1); EOSINOPHILS # (AUTO) 0.1 X10'3 (0-0.9); EOSINOPHILS % (AUTO) 2.4 % (0-6); HEMATOCRIT 40.5 % (35.0-45.0); HEMOGLOBIN 12.8 g/dl (12.0-16.0); LYMPHOCYTES # (AUTO) 1.7 X10'3 (1.1-4.8); LYMPHOCYTES % (AUTO) 30.8 % (21-51); MEAN CORPUSCULAR HEMOGLOBIN 24.2 PG (27.0-31.0); MEAN CORPUSCULAR HGB CONC 31.5 g/dL (33.0-36.5); MEAN CORPUSCULAR VOLUME 76.8 FL (78-98); MEAN PLATELET VOLUME 8.6 FL (7.4-10.4); MONOCYTES # (AUTO) 0.5 X10'3 (0-0.9); MONOCYTES % (AUTO) 8.7 % (2-12); NEUTROPHILS # (AUTO) 3.2 X10'3 (1.8-7.7); NEUTROPHILS % (AUTO) 57.2 % (42-75); PLATELET COUNT 325 X10'3 (140-440); RED BLOOD COUNT 5.28 X10'6 (4.20-5.60); RED CELL DISTRIBUTION WIDTH 14.9 % (11.5-14.5); WHITE BLOOD COUNT 5.7 X10'3 (4.5-11.0)
[2024-08-08 18:55] LABS: PROTHROMBIN TIME 10.1 SECONDS (9.0-12.0)
[2024-08-08 19:05] LABS: ALBUMIN 4.1 G/DL (3.4-5.0); ANION GAP 12 (8-16); BLOOD UREA NITROGEN 16 MG/DL (7-18); BUN/CREATININE RATIO 33.3 (10.0-20.0); CALCIUM 8.9 MG/DL (8.5-10.1); CHLORIDE 105 MMOL/L (99-107); CREATININE 0.48 MG/DL (0.40-0.90); GLUCOSE 146 MG/DL (70-104); POTASSIUM 4.4 MMOL/L (3.5-5.1); PRO BRAIN NATRIURETIC PEPTIDE 69 PG/ML (0-125); SODIUM 141 MMOL/L (135-145); eCRCL 129 ML/MIN; eGFR > 90 ML/MIN
[2024-08-08 19:42] VITALS: BP 101/69; PULSE 89; RESP 13; TEMP 97.7; O2SAT 99
== END 2024-08-08 19:45 | disposition home or self-care (01) ==
LOC: ER 15:39
DX: R07.9 Chest pain, unspecified (principal); J45.909 Unspecified asthma, uncomplicated; Z87.891 Personal history of nicotine dependence; Z79.82 Long term (current) use of aspirin
CPT/HCPCS: 36415; 71046; 80048; 83880; 84484; 85025; 85610; 93005; 99285

== ENCOUNTER 2024-09-04 15:50 | Emergency (ER) | payer BC ==
[~2024-09-04] VITALS: Ht 162.6 cm; Wt 80.9 kg
[2024-09-04 15:52] VITALS: BP 145/50; PULSE 87; RESP 16; TEMP 98; O2SAT 97
== END 2024-09-04 17:05 | disposition home or self-care (01) ==
LOC: ER 15:50
DX: S93.491A Sprain of other ligament of right ankle, initial encounter (principal); J45.909 Unspecified asthma, uncomplicated; G89.29 Other chronic pain; M54.9 Dorsalgia, unspecified; Z79.82 Long term (current) use of aspirin; Z79.4 Long term (current) use of insulin; Z79.899 Other long term (current) drug therapy; X58.XXXA Exposure to other specified factors, initial encounter; Y93.89 Activity, other specified; Y92.89 Other specified places as the place of occurrence of the external cause; Y99.8 Other external cause status
CPT/HCPCS: 73610; 99284; A6449

== ENCOUNTER 2024-09-22 05:05 | Emergency (ER) | payer BC ==
[~2024-09-22] VITALS: Ht 162.6 cm; Wt 79.9 kg
[2024-09-22 05:10] VITALS: TEMP 97.9
[2024-09-22] MEDS ORDERED: TIRZ5PEN SQ (05:24)
[2024-09-22] MEDS ORDERED: DAPA1TAB3 (05:26)
[2024-09-22 05:42] VITALS: BP 134/86; PULSE 98; RESP 18; O2SAT 99
== END 2024-09-22 06:00 | disposition home or self-care (01) ==
LOC: ER 05:06
DX: H93.11 Tinnitus, right ear (principal); J45.909 Unspecified asthma, uncomplicated; G89.29 Other chronic pain; M54.9 Dorsalgia, unspecified; Z79.899 Other long term (current) drug therapy; Z79.1 Long term (current) use of non-steroidal anti-inflammatories (NSAID)
CPT/HCPCS: 99281

== ENCOUNTER 2024-11-11 06:57 | Outpatient (CLI) | payer BC ==
[~2024-11-11 06:57] MED LIST changes: +DAPA1TAB3; -INSU100I31 SQ; -LANTUS SQ; -METF-1142 PO; -METF500T PO; +TIRZ5PEN SQ
[2024-11-11 07:53] LABS: BASOPHILS # (AUTO) 0.1 X10'3 (0-0.2); BASOPHILS % (AUTO) 1.1 % (0-1); EOSINOPHILS # (AUTO) 0.2 X10'3 (0-0.9); EOSINOPHILS % (AUTO) 2.8 % (0-6); HEMATOCRIT 35.1 % (35.0-45.0); HEMOGLOBIN 11.3 g/dl (12.0-16.0); LYMPHOCYTES # (AUTO) 2.4 X10'3 (1.1-4.8); LYMPHOCYTES % (AUTO) 36.5 % (21-51); MEAN CORPUSCULAR HEMOGLOBIN 23.4 PG (27.0-31.0); MEAN CORPUSCULAR HGB CONC 32.1 g/dL (33.0-36.5); MEAN CORPUSCULAR VOLUME 72.8 FL (78-98); MONOCYTES # (AUTO) 0.6 X10'3 (0-0.9); MONOCYTES % (AUTO) 8.8 % (2-12); NEUTROPHILS # (AUTO) 3.4 X10'3 (1.8-7.7); NEUTROPHILS % (AUTO) 50.8 % (42-75); PLATELET COUNT 270 X10'3 (140-440); RED BLOOD COUNT 4.83 X10'6 (4.20-5.60); WHITE BLOOD COUNT 6.7 X10'3 (4.5-11.0)
[2024-11-11 08:02] LABS: ALANINE AMINOTRANSFERASE 25 U/L (12-78); ALBUMIN/GLOBULIN RATIO 1.4 (1.1-1.5); ALKALINE PHOSPHATASE 44 IU/L (46-116); ANION GAP 8 (8-16); ASPARTATE AMINO TRANSFERASE 14 U/L (10-37); BILIRUBIN,TOTAL 0.3 MG/DL (0.1-1.0); BLOOD UREA NITROGEN 27 MG/DL (7-18); BUN/CREATININE RATIO 38.6 (10.0-20.0); CALCIUM 9.1 MG/DL (8.5-10.1); CHLORIDE 104 MMOL/L (99-107); CHOL/HDL RATIO 3.4 (0.00-4.99); CHOLESTEROL 158 MG/DL (0-200); GLUCOSE 155 MG/DL (70-104); HDL CHOLESTEROL 46 MG/DL (35-60); LDL CHOLESTEROL 84 MG/DL (50-100); POTASSIUM 4.3 MMOL/L (3.5-5.1); SODIUM 139 MMOL/L (135-145); THYROID STIMULATING HORMONE 1.38 ulU/ml (0.34-4.50); TOTAL CARBON DIOXIDE 27.5 MMOL/L (24-32); TOTAL PROTEIN 6.8 G/DL (6.4-8.2); TRIGLYCERIDES 149 MG/DL (20-135); eGFR > 90 ML/MIN
[2024-11-11 10:19] LABS: HEMOGLOBIN A1C 6.9 % (4.5-6.2)
[2024-11-12 09:16] LABS: VITAMIN D, 25-HYDROXY 15.3 ng/mL (30.0-100.0)
[2024-11-12 13:14] LABS: CREATININE, URINE 78.7 mg/dL (Not Estab.); MICROALBUMIN,U,RANDOM 4.7 ug/mL (Not Estab.)
== END 2024-11-11 23:59 | disposition home or self-care (01) ==
LOC: LAB 06:57
PROVIDERS: ATTEND Internal Medicine Endocrinology, Diabetes & Metabolism
DX: E11.9 Type 2 diabetes mellitus without complications (principal); E78.5 Hyperlipidemia, unspecified; E55.9 Vitamin D deficiency, unspecified
CPT/HCPCS: 36415; 80053; 80061; 82043; 82306; 82570; 83036; 84443; 85025

== ENCOUNTER 2025-03-03 09:07 | Outpatient (CLI) | payer BC ==
--- NOTE | 2025-03-03 11:37 | VASCULAR REPORT ---
Indication: Technique: Real-time ultrasound images of the neck vessels with phan-scale, color and wave Doppler we re obtained. Comparison: None Findings: There is nykz-fo-tvqbroyw atherosclerotic plaque most pronounced in the carotid bulb/proximal ICA reg ion. The following peak systolic velocities were recorded in cm/sec: Right internal carotid: 83 Right common carotid: 86 Right external carotid: 147 Right internal/common carotid ratio: 1 Left internal carotid: 93 Left common carotid: 99 Left external carotid: 101 Left internal/common carotid ratio: 0.9 Right vertebral artery: Patent with normal antegrade direction of flow. Left vertebral artery: Patent with normal antegrade direction of flow. Impression: No hemodynamically significant stenosis by velocity criteria.
== END 2025-03-03 23:59 | disposition home or self-care (01) ==
LOC: VAS 09:07
PROVIDERS: ATTEND Internal Medicine Interventional Cardiology
DX: I65.21 Occlusion and stenosis of right carotid artery (principal)
CPT/HCPCS: 93880

== ENCOUNTER 2025-05-11 06:54 | Outpatient (CLI) | payer BC ==
[2025-05-11 08:05] LABS: CHOL/HDL RATIO 2.7 (0.00-4.99); CREATININE 0.56 MG/DL (0.40-0.90); LDL CHOLESTEROL 61 MG/DL (50-100); TOTAL CARBON DIOXIDE 25.5 MMOL/L (24-32); eGFR > 90 ML/MIN
== END 2025-05-11 23:59 | disposition home or self-care (01) ==
LOC: RAD 06:54
PROVIDERS: ATTEND Nurse Practitioner Family
DX: E78.5 Hyperlipidemia, unspecified (principal)
CPT/HCPCS: 36415; 80053; 80061

== ENCOUNTER 2025-05-11 07:07 | Outpatient (CLI) | payer BC ==
[2025-05-11 07:40] LABS: MEAN PLATELET VOLUME 8.6 FL (7.4-10.4); RED CELL DISTRIBUTION WIDTH 16.6 % (11.5-14.5)
[2025-05-11 08:55] LABS: PLATELET ESTIMATE NORMAL
== END 2025-05-11 23:59 | disposition home or self-care (01) ==
LOC: RAD 07:07
PROVIDERS: ATTEND Internal Medicine Endocrinology, Diabetes & Metabolism
DX: E11.9 Type 2 diabetes mellitus without complications (principal); E55.9 Vitamin D deficiency, unspecified; E78.5 Hyperlipidemia, unspecified
CPT/HCPCS: 36415; 82306; 83036; 84439; 84443; 85008; 85025

== ENCOUNTER 2025-06-09 15:15 | Outpatient (CLI) | payer BC ==
[2025-06-09 16:09] LABS: % IRON SATURATION 4.0 % (11-46)
[2025-06-11 11:24] LABS: TESTOSTERONE, SERUM 25 ng/dL (4-50); THYROID PEROXIDASE AB 32 IU/mL (0-34)
== END 2025-06-09 23:59 | disposition home or self-care (01) ==
LOC: LAB 15:15
PROVIDERS: ATTEND Internal Medicine Endocrinology, Diabetes & Metabolism
DX: E03.9 Hypothyroidism, unspecified (principal); D50.9 Iron deficiency anemia, unspecified; E28.1 Androgen excess
CPT/HCPCS: 36415; 83540; 83550; 84402; 84403; 84439; 84443; 86376